=== PATIENT | female | born 1965 | race Caucasian/White ===

== ENCOUNTER 2017-07-30 16:02 | Outpatient (CLI) | payer MEDICARE, OTHER ==
[2015-05-05 18:23] VITALS: BP 138/68
== END 2017-07-30 16:03 ==
LOC: LAB 16:02
PROVIDERS: ATTEND Family Medicine
DX: E53.8 Deficiency of other specified B group vitamins (principal)
CPT/HCPCS: 36415; 82607

== ENCOUNTER 2018-02-09 13:06 | Outpatient (CLI) | payer MEDICARE, OTHER ==
[2015-05-05 18:23] VITALS: BP 138/68
== END 2018-02-09 13:07 ==
LOC: POD 13:06
PROVIDERS: ATTEND Podiatrist
DX: M72.2 Plantar fascial fibromatosis (principal); B35.1 Tinea unguium; M79.674 Pain in right toe(s); M79.675 Pain in left toe(s)
CPT/HCPCS: 11721; G0463

== ENCOUNTER 2018-02-23 14:36 | Outpatient (CLI) | payer MEDICARE, OTHER ==
[2015-05-05 18:23] VITALS: BP 138/68
== END 2018-02-23 14:37 ==
LOC: POD 14:36
PROVIDERS: ATTEND Podiatrist
DX: M72.2 Plantar fascial fibromatosis (principal); B35.1 Tinea unguium; M79.674 Pain in right toe(s); M79.675 Pain in left toe(s)
CPT/HCPCS: G0463

== ENCOUNTER 2018-06-15 10:58 | Outpatient (CLI) | payer OTHER ==
[2015-05-05 18:23] VITALS: BP 138/68
--- NOTE | 2018-06-15 12:30 | Diagnostic Imaging Report ---
[facility] [address] [facility] [address] Report Submission Date: Jun 15, 2018 11:53:36 AM CDT Patient Study Name: SHREYA KULKARNI Date: Jun 15, 2018 11:15:05 AM CDT Modality Type: US Gender: F Description: : 67 Institution: [facility] Physician: JUANY LÓPEZ Transabdominal pelvic ultrasound Clinical history: Pelvic pain Findings: Transabdominal pelvic ultrasound demonstrates no ascites. The uterus and adnexa are not well evaluated. Impression: No evaluation of the uterus and adnexa. Transvaginal ultrasound recommended if further evaluation is indicated. No ascites Electronically signed on Jun 15, 2018 11:53:36 AM CDT by: Dannie HO
== END 2018-06-15 11:00 ==
LOC: RAD 10:58
PROVIDERS: ATTEND Family Medicine
DX: N95.0 Postmenopausal bleeding (principal)
CPT/HCPCS: 76830; 76856

== ENCOUNTER 2018-06-21 15:17 | Emergency (ER) | payer OTHER ==
[2018-06-21 15:40] VITALS: BP 108/67
--- NOTE | 2018-06-21 15:53 | ED Physician Documentation ---
Lower Extremity Problem - HISTORIAN Historian: patient - HPI Stated Complaint: L knee pain Chief Complaint: Lower Extremity Injury Additional Information: Went to [facility] 06/19 so more walking and bleachers; climbed some of the bleachers on her knees. Had been applying ice yesterday and took 400 mg ibuprofen twice today. Twisted knee at work today and now has worse, continuos pain, worst at medial knee - points to an area just distal to jkoint line. Came to ER walking with ER; doesn't typically use a walker. No previous knee injury. No other modifying factors or associated signs. Location of Injury: L knee Onset: days ago Timing: worse Recent Injury: Yes (twisted knee today at work) - ROS CONST: no problems - PAST HX Past History: none Allergies/Adverse Reactions: Allergies Allergy/AdvReac Type Severity Reaction Status Date / Time No Known Allergies Allergy Verified 06/21/18 15:33 - SOCIAL HX Smoking History: non-smoker - FAMILY HX Family History: none, no significant history - VITAL SIGNS Vital Signs: Vital Signs Temp Pulse Resp BP Pulse Ox 98.0 F 87 18 108/67 98 06/21/18 15:33 06/21/18 15:33 06/21/18 15:33 06/21/18 15:33 06/21/18 15:33 - REVIEWED ASSESSMENTS Nursing Assessment Reviewed: Yes Vitals Reviewed: Yes Progress - Progress Progress: Report Submission Date: Jun 21, 2018 4:30:09 PM CDT Patient Study Name: SHREYA KULKARNI Date: Jun 21, 2018 4:02:41 PM CDT Modality Type: DX Gender: F Description: LOWER EXTREMITY : 67 Institution: [facility] Physician: ROXANNE LOPEZ - ER 3 views of the left knee History: TWISTED KNEE TODAY BUT PAIN STARTED 3 DAYS AGO (Hx) / ITS.REASON pain 3 dasys, twisted it -- No comparison studies Medial knee joint space narrowing is present. No evidence of acute fracture or dislocation No suprapatellar effusion Impression: 1.No evidence of acute fracture or dislocation of the left knee. 2. Medial knee joint space narrowing. No suprapatellar effusion. Electronically signed on Jun 21, 2018 4:30:09 PM CDT by: Jany Abhyankar ED Results Lab/Radiology - Orders Orders: ED Orders Category Date Time Status KNEE 3 VIEWS [RAD] Stat Exams 06/21/18 Taken URINE HCG [URINE HCG] Stat Lab 06/21/18 15:57 Ordered Lower Extremity Problem - EXAM General Appearance: obese Hips: bilateral hip: no evidence of injury Legs: bilateral: no evidence of injury Knees: left: non-tender, bilateral: normal inspection, no evidence of injury Ankle: bilateral: normal inspection, no evidence of injury Neuro/Tendon: normal sensation, normal motor functions, normal tendon functions, no evidence tendon injury (n), other (no drawer signs or significant varus/valgus deviation) EENT: eye inspection normal, ENT inspection normal RESPIRATORY: no resp distress JOINT: joints nml VASCULAR: no vascular compromise, pulses full/equal NEURO/PSYCH: CN's nml as tested, motor nml, sensation nml Discharge Clincal Impression: Knee strain Qualifiers: Encounter type: initial encounter Laterality: left Qualified Code(s): S86.912A - Strain of unspecified muscle(s) and tendon(s) at lower leg level, left leg, initial encounter Referrals: Mira Madera MD [Primary Care Provider] - 2 Days Additional Instructions: Ice to the sore knee for 30 minutes of each hour you are awake for 3 days. You can take 600 mg ibuprofen with food every 8 hours. You can also take 1000 mg tylenol every 8 hours if needed for discomfort. See your provider if you are not getting better in a week. Condition: Good Disposition: 01 HOME, SELF-CARE Decision to Admit: NO Decision Time: 16:35
--- NOTE | 2018-06-21 16:56 | Diagnostic Imaging Report ---
ROXANNE LOPEZ [facility] [address] [facility] [address] [address] Report Submission Date: Jun 21, 2018 4:30:09 PM CDT Patient Study Name: SHREYA KULKARNI Date: Jun 21, 2018 4:02:41 PM CDT Modality Type: DX Gender: F Description: LOWER EXTREMITY : 67 Institution: [facility] Physician: ROXANNE LOPEZ 3 views of the left knee History: TWISTED KNEE TODAY BUT PAIN STARTED 3 DAYS AGO (Hx) / ITS.REASON pain 3 dasys, twisted it -- No comparison studies Medial knee joint space narrowing is present. No evidence of acute fracture or dislocation No suprapatellar effusion Impression: 1.No evidence of acute fracture or dislocation of the left knee. 2. Medial knee joint space narrowing. No suprapatellar effusion. Electronically signed on Jun 21, 2018 4:30:09 PM CDT by: Jany HO
== END 2018-06-21 16:43 | disposition home or self-care (01) ==
LOC: ED 15:17
DX: S86.912A Strain of unspecified muscle(s) and tendon(s) at lower leg level, left leg, initial encounter (principal); X58.XXXA Exposure to other specified factors, initial encounter; Y92.9 Unspecified place or not applicable; Y93.01 Activity, walking, marching and hiking; Y99.9 Unspecified external cause status
CPT/HCPCS: 73562; 81025

== ENCOUNTER 2018-12-07 16:10 | Outpatient (CLI) | payer OTHER ==
--- NOTE | 2018-12-07 19:01 | Diagnostic Imaging Report ---
JUANY LÓPEZ [facility] [address] [facility] [address] [address] Report Submission Date: Dec 07, 2018 6:00:56 PM SPINDLE TESTER Patient Study Name: SHREYA KULKARNI Date: Dec 07, 2018 4:44:00 PM SPINDLE TE[employer] Modality Type: CR Gender: F Description: ABDOMEN 1 VIEW : 67 Institution: [facility] Physician: JUANY LÓPEZ Abdomen AP view. History: Constipation. Findings: Moderate amount of retained stool is present within the colon consistent with constipation. No bowel dilation to suggest obstruction. No abnormal intra-abdominal calcifications. Impression: 1. Moderate amount of retained stool consistent with constipation. Electronically signed on Dec 07, 2018 6:00:56 PM SPINDLE TESTER by: Luis HO
== END 2018-12-07 16:30 ==
LOC: RAD 16:10
PROVIDERS: ATTEND Family Medicine
DX: K59.00 Constipation, unspecified (principal); R10.84 Generalized abdominal pain
CPT/HCPCS: 74018

== ENCOUNTER 2019-01-10 10:57 | Day surgery (SDC) | payer OTHER ==
[~2019-01-10 10:57] MED LIST: LACTATED RINGERS 1,000 ML IV.SOLN IV ONE; LIDOCAINE HCL 2% PF 100MG/5ML VIAL IJ ONE; PROPOFOL 500 MG/50 ML VIAL IV ONE
--- NOTE | 2019-01-25 13:58 | GI Report ---
PROCEDURE PERFORMED: Colonoscopy. SURGEON: Tana Montano M.D., NiloCYasir. INDICATION FOR PROCEDURE: This 53-year-old woman complains of abdominal pain, and just pellet-like stools. She denies blood in the stool. She is referred for evaluation. The patient is on a number of medications including Singulair. She does take MiraLAX. She is on omeprazole, diclofenac. PROCEDURE MEDICATION: Propofol, as per Anesthesia. DESCRIPTION OF PROCEDURE: The Olympus video colonoscope was advanced in the rectum. The colonoscope was slowly advanced all the way to the cecum. The appendiceal orifice and terminal ileum were normal. Photographs were taken. On slow withdrawal, the cecum, ascending colon and transverse colon, no obvious intraluminal lesions were noted. The descending colon and sigmoid, some redundancy. No obvious intraluminal lesions noted. Retroflexion in the rectum was normal. The patient tolerated the procedure well. FINDINGS: A slightly redundant spastic colon but normal mucosa. RECOMMENDATIONS: 1. Would increase fiber in the diet such as Benefiber, fruits, vegetables. 2. Follow up with Dr. Madera. 3. I dont see any intraluminal pathology. Consider relooking at her colon in 10 years, sooner if clinically indicated. TANA MONTANO M.D., F.A.CSharonP. PILY/abdiel R: [birth year] Job#: [id number] Cc: Mira Madera M.D. [id number] [place] [address] Sent via ] MTDJosiah
== END 2019-01-10 13:01 | disposition home or self-care (01) ==
LOC: OPSURG 10:57
PROVIDERS: ATTEND Internal Medicine Gastroenterology
DX: Z12.11 Encounter for screening for malignant neoplasm of colon (principal); K59.8 Other specified functional intestinal disorders
CPT/HCPCS: G0121; J2001; J2704; J7120; S1016